=== PATIENT | female | born 1945 | race Caucasian/White ===

== ENCOUNTER 2021-09-21 17:36 | Emergency (ER) | payer MEDICARE ==
[~2021-09-21] VITALS: Ht 154.9 cm; Wt 76.2 kg
[2021-09-21 17:37] VITALS: BP 188/108
== END 2021-09-21 21:02 | disposition left against medical advice (07) ==
LOC: EDH 17:36
DX: R10.9 Unspecified abdominal pain (principal); Z53.21 Procedure and treatment not carried out due to patient leaving prior to being seen by health care provider